=== PATIENT | male | born 2000 | race Caucasian/White ===

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

== ENCOUNTER 2019-01-11 05:46 | Day surgery (SDC) | payer BC ==
[2019-01-11] MEDS ORDERED: Buffered Lidocaine 1% SYRIN* 1 ML/SYRINGE INTRADERM ONE (06:24)
[2019-01-11] MEDS ORDERED: Propofol* 10 MG/ML 20 ML BTL ONE (06:47)
[2019-01-11] MEDS ORDERED: fentaNYL* 50 MCG/ML 2 ML VIAL (100 MCG VIAL) ONE (06:51)
[2019-01-11] MEDS ORDERED: Midazolam* 1 MG/ML 2 ML VIAL (2 MG) ONE (06:51)
[2019-01-11] MEDS ORDERED: KETAMINE HCL* 50 MG/ML 10 ML VIAL ONE (06:52)
[2019-01-11] MEDS ORDERED: Lidocaine 2% PF * 5 ML VIAL ONE (06:55)
[2019-01-11] MEDS ORDERED: Succinylcholine* 20 MG/ML 10 ML VIAL ONE ×2 (06:58→09:50)
[2019-01-11] MEDS ORDERED: Bupivacaine 0.25% W/EPI* 10 ML SDV ONE ×2 (07:09→08:11)
[2019-01-11] MEDS ORDERED: ceFAZolin 2 GM in NS PREMIX(*) 2 GM/100 ML BAG IVPB ONE (07:17)
[2019-01-11] MEDS ORDERED: Ondansetron INJ* 2 MG/ML VIAL ONE (08:40)
[2019-01-11] MEDS ORDERED: Metoclopramide IV* 5 MG/ML 2 ML VIAL ONE (08:40)
[2019-01-11] MEDS ORDERED: Ketorolac INJ* 30 MG/ML 1 ML VIAL ONE (08:40)
[2019-01-11] MEDS ORDERED: Acetaminophen TAB* 325 MG PO PRN (09:10)
[2019-01-11] MEDS ORDERED: oxyCODONE/Acetamin 5/325 MG* TAB PO PRN (09:10)
[2019-01-11] MEDS ORDERED: fentaNYL* 50 MCG/ML 2 ML VIAL (100 MCG VIAL) IV PRN (09:10)
[2019-01-11] MEDS ORDERED: Naloxone* 0.4 MG/ML 1 ML VIAL IV PRN (09:10)
--- NOTE | 2019-01-11 09:13 | BRIEFOPN ---
Brief Operative Note - Surgery Procedures: Procedures OPERATIVE REPORT Pre-op: Recurrent pilonidal disease Post-Op: Same Procedure:Excision of pilonidal disease Surgeon: MD Antoni Asst: none Anes: general with local IVF:min EBL:min Specimen: Pilonidal skin and subcutaneous tissue Drain: none Wound: 4 To PACU
[2019-01-11] MEDS ORDERED: Acetaminophen TAB* 325 MG ONE (09:21)
[2019-01-11] MEDS ORDERED: Phenylephrine 10 MG/ML VIAL* 1 ML VIAL ONE (09:48)
[2019-01-11] MEDS ORDERED: Propofol* 500 MG/50 ML BTL ONE ×2 (09:51→12:11)
[2019-01-11] MEDS ORDERED: Remifentanil* 2 MG VIAL ONE (09:51)
[2019-01-11] MEDS ORDERED: oxyCODONE/Acetamin 5/325 MG* TAB ONE (10:18)
[2019-01-11 11:27] VITALS: BP 131/60
[2019-01-11] MEDS ORDERED: Dexmedetomidine* 200 MCG/2 ML 2 ML VIAL ONE (12:08)
--- NOTE | 2019-01-12 01:12 | OP ---
DATE OF OPERATION: 01/11/19 - [facility] DATE OF : 89 SURGEON: Tae Corrales MD GLOVE CUTTER: None. ANESTHESIOLOGIST: Dr. Rojas. ANESTHESIA: General with local. PRE-OP DIAGNOSIS: Recurrent pilonidal disease. POST-OP DIAGNOSIS: Recurrent pilonidal disease. OPERATIVE PROCEDURE: Excision of pilonidal disease. ESTIMATED BLOOD LOSS: Minimal. WOUND CLASSIFICATION: 4. COMPLICATIONS: None. DRAINS: None. SPECIMENS: Pilonidal skin and subcutaneous tissue. BRIEF HISTORY: Mr. Jose Solis is a 18-year-old gentleman who had undergone a pilonidal cyst excision several years ago for chronic pilonidal disease. In the past 4 to 6 months, he has developed new midline opening inferior to the previous surgical procedure with midline pits, drainage and abscess formation. He has been treated with oral antibiotics by the wound center physician and was referred for surgical evaluation and excision. DESCRIPTION OF PROCEDURE: Written informed consent was obtained and preoperative antibiotics were administered. The patient was taken to the operating room and general anesthesia was administered. Sequential compression devices and warming blanket were applied. He was placed in the prone jackknife position. The perineum and buttock were prepped and draped in the usual sterile fashion. The skin lines and proposed excisional site were marked with indelible ink. Time-out verification was completed. The midline openings were inferior to the previous excision, which had a well- healed scar at the upper portion of the cleft. A vertical oriented elliptical incision to include all of the midline sinus openings was then performed and carried down using sharp dissection through some significant scar tissue. This also entered some abscess cavities with some small amount of purulence that was drained as well as significant amount of granulation tissue and hair were removed. I did not proceed all the way down to the bony fascia, however. Also using a probe was noted extension of the tract in the midline superiorly up where the previous excision had been performed and I did open this up to extend the incision more superiorly to assure myself that I had excised all of the diseased portions of the subcutaneous tract. At this point, it appeared to be healthy fat and scar tissue inferiorly and the wound was irrigated thoroughly. At this point, I made a decision not to proceed with an attempted closure with flaps due to the contamination of the wound and I thus irrigated the wound well and packed this with a moist 2-inch Kerlix gauze. Plan will be some packing changes to assure eradication of infection and then we will consider formal flap closure at a later time. [id number]/CPS #: [id number] MTDD
== END 2019-01-11 11:29 | disposition home or self-care (01) ==
LOC: OR 05:46
PROVIDERS: ATTEND Surgery
DX: L05.92 Pilonidal sinus without abscess (principal)
CPT/HCPCS: 88304; A9270-GY; J0330; J0690; J1885; J2250; J2405; J2704; J2765; J3010

== ENCOUNTER 2019-01-25 08:57 | Day surgery (SDC) | payer BC ==
[~2019-01-25 08:57] MED LIST changes: +Acetaminophen TAB* 325 MG PO ONE; -Buffered Lidocaine 0.9% SYRIN* 5 ML/SYR SYRINGE INTRADERM ONE; +Buffered Lidocaine 1% SYRIN* 1 ML/SYRINGE INTRADERM ONE; +Gabapentin CAP(*) 300 MG PO ONE; +Lactated Ringers 1000 ML Bag* 1,000 ML IV SCH; -Sodium Citrate/Citric Acid* 15 ML UDC PO ONE
[2019-01-25] MEDS ORDERED: Acetaminophen TAB* 325 MG ONE (09:23)
[2019-01-25] MEDS ORDERED: ceFAZolin 2 GM PREMIX in ORs 2 GM/50 ML BAG IVPB ONE (09:23)
[2019-01-25] MEDS ORDERED: Gabapentin CAP(*) 300 MG ONE (09:23)
[2019-01-25] MEDS ORDERED: Famotidine IV* 10 MG/ML 2 ML (20 mg) ONE (10:30)
[2019-01-25] MEDS ORDERED: fentaNYL* 50 MCG/ML 2 ML VIAL (100 MCG VIAL) ONE ×3 (11:39→14:42)
[2019-01-25] MEDS ORDERED: Midazolam* 1 MG/ML 2 ML VIAL (2 MG) ONE ×2 (11:42→12:34)
[2019-01-25] MEDS ORDERED: Bupivacaine 0.25% EPI 200,000* 30 ML SDV ONE (12:08)
[2019-01-25] MEDS ORDERED: Rocuronium* 10 MG/ML VIAL ONE (12:33)
[2019-01-25] MEDS ORDERED: Succinylcholine* 20 MG/ML 10 ML VIAL ONE (12:33)
[2019-01-25] MEDS ORDERED: Propofol* 10 MG/ML 20 ML BTL ONE (12:33)
[2019-01-25] MEDS ORDERED: Ondansetron INJ* 2 MG/ML VIAL ONE (12:33)
[2019-01-25] MEDS ORDERED: Naloxone* 0.4 MG/ML 1 ML VIAL IV PRN (13:12)
[2019-01-25] MEDS ORDERED: DiMENhydriNATE IV* 50 MG/ML VIAL IV PUSH PRN (13:27)
[2019-01-25] MEDS ORDERED: oxyCODONE/Acetamin 5/325 MG* TAB PO PRN (13:27)
[2019-01-25] MEDS ORDERED: Acetaminophen TAB* 325 MG PO PRN (13:27)
[2019-01-25] MEDS ORDERED: diPHENhydraMINE IV* 50 MG/ML 1 ml VIAL (BENADRYL) IV PRN (13:27)
[2019-01-25] MEDS ORDERED: PROCHLORPERAZINE INJ 5 MG/ML 2 ML VIAL IV PRN (13:27)
[2019-01-25] MEDS ORDERED: fentaNYL* 50 MCG/ML 2 ML VIAL (100 MCG VIAL) IV PRN (13:27)
[2019-01-25] MEDS ORDERED: Ondansetron INJ* 2 MG/ML VIAL IV PRN (13:27)
[2019-01-25] MEDS ORDERED: DiMENhydriNATE IV* 50 MG/ML VIAL ONE (14:14)
[2019-01-25] MEDS ORDERED: Ketorolac INJ* 30 MG/ML 1 ML VIAL ONE (15:14)
[2019-01-25] MEDS ORDERED: Ketorolac INJ* 15 MG/ML 1 ML VIAL IV PUSH ONE (15:15)
[2019-01-25] MEDS ORDERED: oxyCODONE/Acetamin 5/325 MG* TAB ONE (15:42)
[2019-01-25 16:27] VITALS: BP 130/63
--- NOTE | 2019-01-26 08:32 | OP ---
DATE OF OPERATION: 01/25/19 - [facility] DATE OF : 89 SURGEON: Dr. Corrales. BODY CARE MANAGER: None. ANESTHESIOLOGIST: Dr. Garg. ANESTHESIA: General with local. PRE-OP DIAGNOSIS: Pilonidal cyst disease. POST-OP DIAGNOSIS: Pilonidal cyst disease. OPERATIVE PROCEDURE: Excision of pilonidal cyst with closure. ESTIMATED BLOOD LOSS: Minimal. SPECIMENS: None. COMPLICATIONS: None. DRAINS: A #7 JOSÉ MIGUEL drain in the subcutaneous space of the cleft. DESCRIPTION OF PROCEDURE: Written informed consent was obtained, the patient received preoperative antibiotics and was taken to the operating room. General anesthesia was administered. Sequential compression devices and warming blanket were applied. He was placed in the prone jackknife position. The lower back and buttocks and perianal area were prepped and draped in the usual sterile fashion. Timeout verification was completed. The patient has had recent abscess with sinus tracts excised and drained and there was granulation tissue with the midline. There was no sinus tract extending laterally. Thus, a wider lip of skin and subcutaneous tissue was excised from the skin level down to the subcutaneous fat to include the forming granulation tissue. The underlying subcutaneous fat was healthy. No evidence of fistulous tract or sinuses. Once this was complete, this material was passed off and I did not send it for specimen. The area was then irrigated and hemostasis was assured. The midline subcutaneous fat and fascia was then closed in layers using interrupted 2-0 Vicryl suture. I did create skin flaps to both the left and right of the midline to reduce tension and the #7 JOSÉ MIGUEL drain was placed within 2 layers of closure in an area where I expected possible fluid to accumulate. Subcutaneous fat was then closed with a running 3-0 Vicryl suture. The skin was then approximated with a running subcuticular 3-0 nylon suture with knots tied at both ends of the incision. Steri-Strips were then placed over the incision and a dry sterile dressing was placed. Drain sponge was also placed. The patient tolerated the procedure well and was taken to the recovery room in stable condition. [id number]/CPS #: [id number] ABRAHAM
--- NOTE | 2019-01-26 13:40 | BRIEFOPN ---
Brief Operative Note - Surgery Procedures: Procedures OPERATIVE REPORT Date of Procedure 01/25/19 Pre-op: Pilonidal disease Post-Op: Same Procedure:Excisional pilonidal disease Surgeon: MD Antoni Asst: none Anes: general with local , Dr. Garg IVF:1 l of crystalloid EBL:min Specimen: none Drain: #7 JOSÉ MIGUEL drain Wound: 2 To PACU
== END 2019-01-25 16:32 | disposition home or self-care (01) ==
LOC: OR 08:57
PROVIDERS: ATTEND Surgery
DX: L05.91 Pilonidal cyst without abscess (principal)
CPT/HCPCS: A9270-GY; J0330; J0690; J1240; J1885; J2250; J2405; J2704; J3010